=== PATIENT | female | born 1975 | race Caucasian/White ===

== ENCOUNTER 2021-12-12 18:15 | Emergency (ER) | payer OTHER, SELFPAY ==
[2021-12-12] VITALS (7 sets, daily range): BP systolic 116–130; BP diastolic 71–77; PULSE 63–73; RESP 16–21; O2SAT 99–100
--- NOTE | 2021-12-12 18:24 | ED_ITS ---
HPI - Abdominal Pain General Chief Complaint: Abdominal Pain Stated Complaint: ABD Pain Time Seen by Provider: 12/12/21 18:24 History of Present Illness HPI narrative: 46F nonsmoker without significant chronic medical history presents for evaluation of epigastric pain. She states that she is had multiple episodes in the past that seemed to improve without any significant duration or i ntervention, however today it lasted a bit longer and was more intense. She denies any obvious provocation or palliation but does state that she has occasion of radiation to her shoulder or back. She currently is symptom free. She denies dizziness, weakness or lightheadedness. She denies any nausea, vomiting or diarrhea and has had no fever or chills. She was talking with her mother who has had extensive gallbladder problems and was encouraged to come for evaluation. Related Data Previous Rx's Medication Instructions Recorded pantoprazole 40 mg tablet,delayed 40 mg PO DAILY #30 tabs 12/12/21 release (Protonix) Allergies Allergy/AdvReac Type Severity Reaction Status Date / Time Sulfa (Sulfonamide Allergy Verified 12/12/21 18:36 Antibiotics) Review of Systems Review of Systems Narrative: GENERAL: Denies chills, fatigue, malaise, fever, sweats. HEENT: Denies sinus pain, ear pain, sore throat, difficulty swallowing, dizziness. RESPIRATORY: Denies dyspnea, cough, wheezing, hemoptysis, sputum. CARDIOVASCULAR: Denies chest pain, palpitations, orthopnea, edema, GASTROINTESTINAL: See HPI : Denies dysuria, frequency, incontinence, hematuria, urinary retention. MUSCULOSKELETAL: denies weakness, joint pain, or bony pain SKIN: Denies rash, skin lesions, or other NEUROLOGIC: Denies weakness, headache, numbness, change in speech, confusion, seizures, incoordination. PSYCHIATRIC: No concerning psychosocial issues. 12 point review of systems is negative except for those stated above Exam Narrative Exam Narrative: GENERAL: [46] year old patient appears stated age. Well-developed patient, in mild distress. HEAD: Atraumatic. Normocephalic. EYES: Pupils equal round and reactive. Extraocular motions intact. No scleral icterus. No injection or drainage. ENT: Nose without bleeding, purulent drainage. Throat without erythema, tonsillar hypertrophy or exudate. Airway patent. NECK: Trachea midline. Non tender CARDIOVASCULAR: Regular rate and rhythm without murmurs, gallops, or rubs. RESPIRATORY: Clear to auscultation. Breath sounds equal bilaterally. No wheezes, rales, or rhonchi. GASTROINTESTINAL: Abdomen soft, non-tender, nondistended. EXTREMITIES: No edema or joint tenderness. BACK: Nontender without deformity or crepitance. No flank tenderness. NEURO: AOx3. SKIN: No rash or erythema of visible areas Initial Vital Signs Initial Vital Signs: Vital Signs Pulse Rate 73 12/12/21 18:25 Blood Pressure 130/77 12/12/21 18:25 Pulse Oximetry 100 12/12/21 18:25 Course Orders Ordered: ED Orders 12/12/21 18:35 Complete Blood Count AUTO DIFF Stat Comprehensive Metabolic Panel Stat Lipase Stat 12/12/21 18:47 US abdomen limited Stat Discontinued Medications Sodium Chloride (Normal Saline 0.9%) 1,000 mls @ 1,000 mls/hr IV BOLUS ONE Stop: 12/12/21 19:47 Last Infusion: 12/12/21 19:50 Dose: 0 mls/hr Documented By: Admin: 12/12/21 18:56 Dose: 1,000 mls/hr Documented By: SB Pantoprazole Sodium (Pantoprazole 40 Mg Vial) 40 mg IV NOW ONE Stop: 12/12/21 18:49 Last Admin: 12/12/21 18:56 Dose: 40 mg Documented By: SB Vital Signs Vital signs: Vital Signs - 8 hr 12/12/21 18:31 12/12/21 18:25 12/12/21 18:25 Pulse Rate 69 73 Respiratory Rate 16 Blood Pressure 116/71 130/77 Pulse Oximetry 100 100 Oxygen Delivery Method Room Air 12/12/21 18:30 12/12/21 18:30 12/12/21 19:00 Pulse Rate 67 67 Respiratory Rate 17 Blood Pressure 116/71 Pulse Oximetry 100 100 Oxygen Delivery Method Room Air 12/12/21 19:30 12/12/21 19:38 12/12/21 19:38 Pulse Rate 68 73 Respiratory Rate 21 18 Blood Pressure 121/74 Pulse Oximetry 100 99 Oxygen Delivery Method 12/12/21 20:00 Pulse Rate 63 Respiratory Rate 16 Blood Pressure Pulse Oximetry 99 Oxygen Delivery Method Room Air MDM - Abdominal Pain Lab Data Result diagrams: 12/12/21 18:35 12/12/21 18:35 Labs: Lab Results 12/12/21 12/12/21 Range/Units 18:35 18:35 WBC 8.5 (4.5-11.0) X10^3/uL RBC 4.77 (4.0-5.2) X10^6/uL Hgb 13.8 (12.0-16.0) g/dL Hct 40.7 (36-46) % MCV 85.2 (80-100) fL MCH 29.0 (26-34) PG MCHC 34.0 (30-36) % RDW 13.3 (11.6-14.8) % Plt Count 223 (150-400) X10^3/uL Neut % (Auto) 65.3 (50-75) % Lymph % (Auto) 27.3 (25-40) % [place] % (Auto) 6.1 (3-14) % Eos % (Auto) 0.8 L (2-4) % Baso % (Auto) 0.5 (0-2) % Neut # (Auto) 5500 (1039-8217) /uL Lymph # (Auto) 2300 (9318-5785) /uL [place] # (Auto) 500 (0-900) /uL Eos # (Auto) 100 (0-450) /uL Baso # (Auto) 0 (0-100) /uL Sodium 140 (137-145) mmol/L Potassium 3.5 (3.4-5.1) mmol/L Chloride 105 (98-107) mmol/L Carbon Dioxide 27 (22-32) mmol/L BUN 12 (7-17) mg/dL Creatinine 0.75 (0.52-1.04) mg/dL Estimated GFR > 60 (>60) mL/min BUN/Creatinine Ratio 16.0 (6-22) Glucose 99 (70-100) mg/dL Calcium 9.5 (8.4-10.2) mg/dL Total Bilirubin 0.5 (0.2-1.3) mg/dL AST 23 (14-36) IU/L ALT 16 (<35) IU/L Alkaline Phosphatase 39 (38-126) U/L Total Protein 8.0 (6.3-8.2) g/dL Albumin 4.5 (3.5-5.0) g/dL Globulin 3.5 (1.7-4.1) g/dL Albumin/Globulin Ratio 1.3 (1.0-2.8) Lipase 112 (23-300) U/L Imaging Data US - abdomen: Radiologist's Impression: Close Abdomen Ultrasound (Signed) Timmy Laboy - 12/12/21 Launch?[address] [address] Ultrasound Report Signed Patient: Inez Rico MR#: [id number] : 1975 Acct:[id number] Age/Sex: 46 / F Date of Service: 12/12/21 Loc: ED Accession Number: [id number] ?? Procedure: US abdomen limited Ordering Provider: Arash Ferrera D.O. PROCEDURE:? US ABDOMEN LIMITED ? INDICATIONS:? epigastric pain ? TECHNIQUE:? Real-time scanning was performed of the abdominal and retroperitoneal organs, with image documentation.? ? COMPARISON:? None. ? FINDINGS:? ? Liver:? Liver is normal in size and homogeneous in echotexture.? ? Gallbladder:? The gallbladder demonstrates no gallbladder wall thickening.? No gallstones are seen.? No pericholecystic fluid.? However, there is a positive sonographic Martinez sign is elicited by the hot die press operator.? ? Biliary ducts:? Intrahepatic bile ducts are non-dilated.? Extrahepatic bile duct caliber measures 4 mm.? Normal is 6-7 mm or less in diameter, or 10 mm or less post-cholecystectomy.? ? Pancreas:? Visualized portions of the pancreas are sonographically normal.? ? Miscellaneous:? No free abdominal fluid.? ? ? IMPRESSION:? There is an abnormal sonographic Martinez's sign elicited by the hot die press operator during image acquisition.? Findings may be seen with acute cholecystitis.? Otherwise, no other sonographic findings to suggest acute cholecystitis or cholelithiasis. ? ? ? Dictated by: Timmy Laboy M.D. on 12/12/2021 at 19:27 ? ? Approved by: Timmy Laboy M.D. on 12/12/2021 at 19:29 ? MDM Narrative Medical decision making narrative: Multiple etiologies for patient's symptoms considered include, but not limited to: [Gallbladder disease versus pancreatitis versus GERD versus esophageal spasm versus other Patient's symptoms improved over duration of stay with above-stated therapies. History, physical exam, labs, imaging, and response to therapies have been reassuring. Findings and discharge diagnosis discussed with patient/family followed by verbalization of understanding Return precautions discussed with patient/family whom verbalize understanding. Pain has been well controlled and patient is tolerating oral hydration. Discharge Plan Departure Patient Disposition: Home Clinical Impression: Acute epigastric pain Instructions: DI for Epigastric Pain Activity Restrictions/Additional Instructions: *You have been diagnosed with [acute epigastric pain, as we discussed thankfully your labs and ultrasound are very reassuring and there is no evidence of gallbladder disease, pancreatitis or other specific diagnosis which would require immediate or specific intervention] *What to do: *Please continue to take your regular medications as directed. [x ] New medication prescriptions sent to your pharmacy: [ [facility] in [place]] [ ] New medication written as a paper prescription [ ] No new medications given *Please follow up with your primary care provider in 2-3 days, call for an appointment. Let them know you were seen in the Emergency Department and that we ask that you be seen in follow up. We will electronically transmit a record of today's note if your PCP is in our system *Please consider a clear liquid diet for the next 24-48 hours and then slowly advance to regular as tolerated. Also, try to avoid alcohol, nicotine, caffeine, spicy, acidic or fatty foods as this may worsen your symptoms *If you do not have a primary care provider please contact the [facility] Resource line at [phone]. They will ask some questions about your medical history and help get you set up with a doctor in the community. *Return to Emergency Department if you should have any new, worsening or concern ing symptoms, such as [fever greater than 101 F, shaking chills, worsening pain, persistent vomiting or other bothersome symptoms] Prescriptions: New pantoprazole [Protonix] 40 mg tablet,delayed release (DR/EC) 40 mg PO DAILY Qty: 30 0RF Referrals: Danis Schaefer MD [Primary Care Provider] - Visit Report Forms: Patient Portal/API
--- NOTE | 2021-12-12 18:47 | DI.US.S_ITS ---
PROCEDURE: US ABDOMEN LIMITED INDICATIONS: epigastric pain TECHNIQUE: Real-time scanning was performed of the abdominal and retroperitoneal organs, with image documentation. COMPARISON: None. FINDINGS: Liver: Liver is normal in size and homogeneous in echotexture. Gallbladder: The gallbladder demonstrates no gallbladder wall thickening. No gallstones are seen. No pericholecystic fluid. However, there is a positive sonographic Martinez sign is elicited by the pierogi maker. Biliary ducts: Intrahepatic bile ducts are non-dilated. Extrahepatic bile duct caliber measures 4 mm. Normal is 6-7 mm or less in diameter, or 10 mm or less post-cholecystectomy. Pancreas: Visualized portions of the pancreas are sonographically normal. Miscellaneous: No free abdominal fluid. IMPRESSION: There is an abnormal sonographic Martinez's sign elicited by the pierogi maker during image acquisition. Findings may be seen with acute cholecystitis. Otherwise, no other sonographic findings to suggest acute cholecystitis or cholelithiasis. Dictated by: Timmy Laboy M.D. on 12/12/2021 at 19:27 Approved by: Timmy Laboy M.D. on 12/12/2021 at 19:29
[2021-12-12 18:48] LABS: Add Manual Diff / Slide Review NO; Basophils Absolute Auto 0 /uL (0-100); Basophils Percent Auto 0.5 % (0-2); Eosinophils Absolute Auto 100 /uL (0-450); Eosinophils Percent Auto 0.8 % (2-4); Hematocrit 40.7 % (36-46); Hemoglobin 13.8 g/dL (12.0-16.0); Lymphocytes Absolute Auto 2300 /uL (1100-4500); Lymphocytes Percent Auto 27.3 % (25-40); Mean Corpuscular Volume 85.2 fL (80-100); Monocytes Absolute Auto 500 /uL (0-900); Monocytes Percent Auto 6.1 % (3-14); Neutrophils Absolute Auto 5500 /uL (1500-7000); Neutrophils Percent Auto 65.3 % (50-75); Platelet Count 223 X10^3/uL (150-400); Red Blood Cell Count 4.77 X10^6/uL (4.0-5.2); Red Cell Distribution Width 13.3 % (11.6-14.8); White Blood Cell Count 8.5 X10^3/uL (4.5-11.0)
[2021-12-12] MEDS: PANTOPRAZOLE 40 MG VIAL IV (18:56)
[2021-12-12] MEDS: SODIUM CHLORIDE 0.9% 1,000 ML 1000 ML IV (18:56)
[2021-12-12 19:01] LABS: Alanine Aminotransferase 16 IU/L (<35); Albumin 4.5 g/dL (3.5-5.0); Albumin Globulin Ratio 1.3 (1.0-2.8); Alkaline Phosphatase 39 U/L (38-126); Aspartate Aminotransferase 23 IU/L (14-36); Bilirubin Total 0.5 mg/dL (0.2-1.3); Blood Urea Nitrogen 12 mg/dL (7-17); Calcium 9.5 mg/dL (8.4-10.2); Carbon Dioxide 27 mmol/L (22-32); Chloride 105 mmol/L (98-107); Estimated Glomerular Filt Rate > 60 mL/min (>60); Globulin 3.5 g/dL (1.7-4.1); Glucose 99 mg/dL (70-100); HEMOLYSIS < 15 (0-50); Lipase 112 U/L (23-300); Potassium 3.5 mmol/L (3.4-5.1); Sodium 140 mmol/L (137-145)
== END 2021-12-12 20:44 | disposition home or self-care (01) ==
PROVIDERS: Emergency Provider Emergency Medicine; PCP Internal Medicine
DX: R10.13 Epigastric pain (principal)
CPT/HCPCS: 36415; 76705; 80053; 83690; 85025; 96361; 96374; 99284; C9113

== ENCOUNTER 2022-10-21 14:33 | Emergency (ER) | payer OTHER, SELFPAY ==
--- NOTE | 2022-10-21 14:39 | ED.GENADULT ---
HPI - General Adult General Chief complaint: Abdominal Pain Stated complaint: Stomach pain Time Seen by Provider: 10/21/22 14:39 Related Data Previous Rx's Medication Instructions Recorded pantoprazole 40 mg tablet,delayed 40 mg PO DAILY #30 tabs 12/12/21 release (Protonix) Allergies Allergy/AdvReac Type Severity Reaction Status Date / Time Sulfa (Sulfonamide Allergy Verified 10/21/22 14:45 Antibiotics) Patient History Social History Smoking Status: Never smoker Discharge Plan Departure Prescriptions: No Action pantoprazole [Protonix] 40 mg tablet,delayed release (DR/EC) 40 mg PO DAILY Qty: 30 0RF Referrals: Danis Schaefer MD [Primary Care Provider] -
--- NOTE | 2022-10-21 14:40 | DI.US.S_ITS ---
PROCEDURE: US ABDOMEN LIMITED INDICATIONS: EPIGASTRIC PAIN TECHNIQUE: Real-time focused scanning was performed of the abdomen, with image documentation. COMPARISON: None. FINDINGS: Liver measures 14.0 centimeters in long axis. Liver has normal echotexture. Gallbladder slightly contracted. No gallstones. Gallbladder wall measures 1.8 millimeters. No pericholecystic fluid. No sonographic Martinez sign. Biliary tree is nondilated. Common bile duct measures 2.0 millimeters. Pancreas is sonographically normal. IMPRESSION: No sonographic evidence of cholelithiasis or cholecystitis. If there is continued clinical concern for cholecystitis, a nuclear medicine HIDA scan should be considered for further evaluation. Dictated by: Rosanna Mota MD, PhD on 10/21/2022 at 15:37 Approved by: Rosanna Mota MD, PhD on 10/21/2022 at 15:37
[2022-10-21 14:41] VITALS: BP 120/59; PULSE 79; RESP 18; TEMP 37.1; O2SAT 95; BMI 19.3
--- NOTE | 2022-10-21 14:54 | ED_ITS ---
HPI - Abdominal Pain <Carmen Hodges PA-C - Last Filed: 10/21/22 16:55> General Chief Complaint: Abdominal Pain Stated Complaint: Stomach pain Time Seen by Provider: 10/21/22 14:39 Source: patient Mode of arrival: Ambulatory History of Present Illness HPI narrative: Patient is a 47-year-old female presenting for evaluation of epigastric pain x6 days. She reports that 3 days ago she developed nausea and vomited her food. She states that she took Zofran which caused her to feel constipated. She says that it helped her nausea feel little bit better. She denies any vomiting since Tuesday. She states that her last menstrual period was September 24 and she is expecting it to come soon. She reports that over the 19 of October she had 3 shots of alcohol and thinks this may be related to the current pain that she is having. She was seen in November for similar pain. She reports that she occasionally does get pain similar to this and notes that it comes and self resolves. She is careful to avoid triggers such as caffeine and alcohol as well as generally treating with Prilosec which generally helps control this. She reports that it feels a little bit better when she lies on her left side. She reports her symptoms are somewhat improved right now. She reports that she has a follow up scheduled with [employer] and is following this on/off pain with her PCP as well. Related Data Previous Rx's Medication Instructions Recorded pantoprazole 40 mg tablet,delayed 40 mg PO DAILY #30 tabs 12/12/21 release (Protonix) Allergies Allergy/AdvReac Type Severity Reaction Status Date / Time Sulfa (Sulfonamide Allergy Verified 10/21/22 14:45 Antibiotics) Review of Systems <Carmen Hodges PA-C - Last Filed: 10/21/22 16:55> Review of Systems Narrative: per HPI Patient History <Carmen Hodges PA-C - Last Filed: 10/21/22 16:55> Social History Smoking Status: Never smoker Smoking Status: Never smoker alcohol intake frequency: 0-2 drinks per day Substance Use Type: does not use Exam <Carmen Hodges PA-C - Last Filed: 10/21/22 16:55> Initial Vital Signs Initial Vital Signs: Vital Signs Temperature 98.7 F 10/21/22 14:41 Pulse Rate 79 10/21/22 14:41 Respiratory Rate 18 10/21/22 14:41 Blood Pressure 120/59 L 10/21/22 14:41 Pulse Oximetry 95 10/21/22 14:41 Oxygen Delivery Method Room Air 10/21/22 14:41 GENERAL: 47 year old patient appears stated age. Well-developed patient, in no acute distress. HEAD: Atraumatic. Normocephalic. EYES: Pupils equal round CARDIOVASCULAR: Regular rate and rhythm without murmurs, gallops, or rubs. RESPIRATORY: Clear to auscultation. Breath sounds equal bilaterally. No wheezes, rales, or rhonchi. GASTROINTESTINAL: Abdomen soft, nondistended, mild tenderness in epigastric area, negative Martinez's sign, negative McBurney's, no hepatosplenomegaly palpated, no CVA tenderness EXTREMITIES: No edema or joint tenderness. BACK: Nontender without deformity or crepitance. No flank tenderness. NEURO: AOx3. SKIN: No rash or erythema of visible areas <Arash Ferrera DO - Last Filed: 10/22/22 07:01> Initial Vital Signs Initial Vital Signs: Vital Signs Temperature 98.7 F 10/21/22 14:41 Pulse Rate 79 10/21/22 14:41 Respiratory Rate 18 10/21/22 14:41 Blood Pressure 120/59 L 10/21/22 14:41 Pulse Oximetry 95 10/21/22 14:41 Oxygen Delivery Method Room Air 10/21/22 14:41 Course <Carmen Hodges PA-C - Last Filed: 10/21/22 16:55> Orders Ordered: Discontinued Medications Sodium Chloride (Normal Saline 0.9%) 1,000 mls @ 1,000 mls/hr IV BOLUS ONE Stop: 10/21/22 15:38 Last Infusion: 10/21/22 16:37 Dose: 0 mls/hr Documented By: Admin: 10/21/22 14:56 Dose: 1,000 mls/hr Documented By: Pantoprazole Sodium (Pantoprazole 40 Mg Vial) 40 mg IV NOW ONE Stop: 10/21/22 14:40 Last Admin: 10/21/22 14:56 Dose: 40 mg Documented By: ST Vital Signs Vital signs: Vital Signs - 8 hr 10/21/22 14:41 10/21/22 15:01 10/21/22 15:01 Temperature 98.7 F Pulse Rate 79 67 Respiratory Rate 18 Blood Pressure 120/59 L 105/67 Pulse Oximetry 95 98 Oxygen Delivery Method Room Air <Arash Ferrera DO - Last Filed: 10/22/22 07:01> Orders Ordered: Discontinued Medications Sodium Chloride (Normal Saline 0.9%) 1,000 mls @ 1,000 mls/hr IV BOLUS ONE Stop: 10/21/22 15:38 Last Infusion: 10/21/22 16:37 Dose: 0 mls/hr Documented By: Admin: 10/21/22 14:56 Dose: 1,000 mls/hr Documented By: ST Pantoprazole Sodium (Pantoprazole 40 Mg Vial) 40 mg IV NOW ONE Stop: 10/21/22 14:40 Last Admin: 10/21/22 14:56 Dose: 40 mg Documented By: ST Vital Signs Vital signs: Vital Signs - 8 hr 10/21/22 14:41 10/21/22 15:01 10/21/22 15:01 Temperature 98.7 F Pulse Rate 79 67 Respiratory Rate 18 Blood Pressure 120/59 L 105/67 Pulse Oximetry 95 98 Oxygen Delivery Method Room Air MDM - Abdominal Pain <Carmen Hodges PA-C - Last Filed: 10/21/22 16:55> Lab Data 10/21/22 15:00 10/21/22 15:00 Labs: Lab Results 10/21/22 10/21/22 10/21/22 Range/Units 15:00 15:00 16:03 WBC 6.0 (4.5-11.0) X10^3/uL RBC 4.68 (4.0-5.2) X10^6/uL Hgb 13.6 (12.0-16.0) g/dL Hct 40.3 (36-46) % MCV 86.0 (80-100) fL MCH 29.0 (26-34) PG MCHC 33.8 (30-36) % RDW 13.1 (11.6-14.8) % Plt Count 213 (150-400) X10^3/uL Neut % (Auto) 61.7 (50-75) % Lymph % (Auto) 28.9 (25-40) % [place] % (Auto) 7.8 (3-14) % Eos % (Auto) 1.1 L (2-4) % Baso % (Auto) 0.5 (0-2) % Neut # (Auto) 3700 (5393-8442) /uL Lymph # (Auto) 1700 (2413-8618) /uL [place] # (Auto) 500 (0-900) /uL Eos # (Auto) 100 (0-450) /uL Baso # (Auto) 0 (0-100) /uL Sodium 138 (137-145) mmol/L Potassium 3.7 (3.4-5.1) mmol/L Chloride 102 (98-107) mmol/L Carbon Dioxide 28 (22-32) mmol/L BUN 12 (7-17) mg/dL Creatinine 0.71 (0.52-1.04) mg/dL Estimated GFR > 60 (>60) mL/min BUN/Creatinine Ratio 16.9 (6-22) Glucose 80 (70-100) mg/dL Calcium 9.0 (8.4-10.2) mg/dL Total Bilirubin 0.6 (0.2-1.3) mg/dL AST 30 (14-36) IU/L ALT 28 (<35) IU/L Alkaline Phosphatase 37 L (38-126) U/L Total Protein 7.6 (6.3-8.2) g/dL Albumin 4.3 (3.5-5.0) g/dL Globulin 3.3 (1.7-4.1) g/dL Albumin/Globulin Ratio 1.3 (1.0-2.8) Lipase 65 (23-300) U/L Urine Color Urine Appearance Urine pH (4.5-8.0) Ur Specific [place] (1.000-1.035) Urine Protein (Negative) Urine Glucose (UA) (Negative) g/dL Urine Ketones (NEGATIVE) Urine Occult Blood (Negative) Urine Nitrate (Negative) Urine Bilirubin (NEGATIVE) Urine Urobilinogen (0.2) E.U./dL Ur Leukocyte Esterase (NEGATIVE) Urine RBC (0-5/HPF) Urine WBC (0-5/HPF) Ur Squamous Epith Cells (0-5/HPF) Urine Bacteria (None) Ur Culture Indicated? Urine Test Negative (Negative) 10/21/22 Range/Units 16:03 WBC (4.5-11.0) X10^3/uL RBC (4.0-5.2) X10^6/uL Hgb (12.0-16.0) g/dL Hct (36-46) % MCV (80-100) fL MCH (26-34) PG MCHC (30-36) % RDW (11.6-14.8) % Plt Count (150-400) X10^3/uL Neut % (Auto) (50-75) % Lymph % (Auto) (25-40) % [place] % (Auto) (3-14) % Eos % (Auto) (2-4) % Baso % (Auto) (0-2) % Neut # (Auto) (5673-7759) /uL Lymph # (Auto) (9416-5159) /uL [place] # (Auto) (0-900) /uL Eos # (Auto) (0-450) /uL Baso # (Auto) (0-100) /uL Sodium (137-145) mmol/L Potassium (3.4-5.1) mmol/L Chloride (98-107) mmol/L Carbon Dioxide (22-32) mmol/L BUN (7-17) mg/dL Creatinine (0.52-1.04) mg/dL Estimated GFR (>60) mL/min BUN/Creatinine Ratio (6-22) Glucose (70-100) mg/dL Calcium (8.4-10.2) mg/dL Total Bilirubin (0.2-1.3) mg/dL AST (14-36) IU/L ALT (<35) IU/L Alkaline Phosphatase (38-126) U/L Total Protein (6.3-8.2) g/dL Albumin (3.5-5.0) g/dL Globulin (1.7-4.1) g/dL Albumin/Globulin Ratio (1.0-2.8) Lipase (23-300) U/L Urine Color Yellow Urine Appearance Clear Urine pH 7.5 (4.5-8.0) Ur Specific [place] <=1.005 (1.000-1.035) Urine Protein Negative (Negative) Urine Glucose (UA) Negative (Negative) g/dL Urine Ketones Negative (NEGATIVE) Urine Occult Blood Negative (Negative) Urine Nitrate Negative (Negative) Urine Bilirubin Negative (NEGATIVE) Urine Urobilinogen 0.2 (0.2) E.U./dL Ur Leukocyte Esterase Negative (NEGATIVE) Urine RBC None seen (0-5/HPF) Urine WBC None seen (0-5/HPF) Ur Squamous Epith Cells None seen (0-5/HPF) Urine Bacteria None seen (None) Ur Culture Indicated? Cult not indicated Urine Test (Negative) Point of care testing: Point of Care Testing Test Results Negative Imaging Data abdominal US: Radiologist's Impression: PROCEDURE: US ABDOMEN LIMITED ? INDICATIONS:? EPIGASTRIC PAIN ? TECHNIQUE:? Real-time focused scanning was performed of the abdomen, with image documentation.? ? COMPARISON:? None. ? FINDINGS:? ? Liver measures 14.0 centimeters in long axis.? Liver has normal echotexture. ? Gallbladder slightly contracted.? No gallstones.? Gallbladder wall measures 1.8 millimeters.? No pericholecystic fluid.? No sonographic Martinez sign. ? Biliary tree is nondilated.? Common bile duct measures 2.0 millimeters. ? Pancreas is sonographically normal. ? IMPRESSION:? No sonographic evidence of cholelithiasis or cholecystitis. If there is continued clinical concern for cholecystitis, a nuclear medicine HIDA scan should be considered for further evaluation. ? ? ? Dictated by: Rosanna Mota MD, PhD on 10/21/2022 at 15:37 ? ? Approved by: Rosanna Mota MD, PhD on 10/21/2022 at 15:37 ? MDM Narrative Medical decision making narrative: CC: This is a new problem, uncertain diagnosis possible systemic effects Complicating co-morbidities: Chronic on/off epigastric pain Data collected from: patient, Medical records reviewed: December 07, 2021 ER visit Differential considered: Pancreatitis, reflux, gastritis, urine, Exam documented above, pertinent findings include: Some tenderness to palpation over epigastric area. Lab Test results independently reviewed as above. Pertinent findings: CBC, CMP and lipase show no abnormal values, UA shows no abnormalities and test is negative Imaging studies independently reviewed: Abdominal ultrasound does not show any evidence of cholelithiasis or cholecystitis. Treatments: Patient received pantoprazole and reports significant improvement pantoprazole and fluids. Re-evaluations: Recheck at 4:17 p.m. shows that patient has significantly improved, and she rep orts her pain is better. Discussion: Reviewed with Dr. Ferrera. Discussed with patient that she should be good to go home today. She likely is experiencing gastritis and I advised her to avoid NSAIDs and known triggers such as caffeine and continue daily omeprazole. I advised that she continue follow up with primary care provider and [employer] as scheduled. Disposition: see below, along with detailed discharge instructions that have been reviewed with patient as well as indications for ED re-evaluation and additional outpatient follow up <Arash Ferrera, DO - Last Filed: 10/22/22 07:01> Lab Data Labs: Lab Results 10/21/22 10/21/22 10/21/22 Range/Units 15:00 15:00 16:03 WBC 6.0 (4.5-11.0) X10^3/uL RBC 4.68 (4.0-5.2) X10^6/uL Hgb 13.6 (12.0-16.0) g/dL Hct 40.3 (36-46) % MCV 86.0 (80-100) fL MCH 29.0 (26-34) PG MCHC 33.8 (30-36) % RDW 13.1 (11.6-14.8) % Plt Count 213 (150-400) X10^3/uL Neut % (Auto) 61.7 (50-75) % Lymph % (Auto) 28.9 (25-40) % [place] % (Auto) 7.8 (3-14) % Eos % (Auto) 1.1 L (2-4) % Baso % (Auto) 0.5 (0-2) % Neut # (Auto) 3700 (8563-5844) /uL Lymph # (Auto) 1700 (1401-2250) /uL [place] # (Auto) 500 (0-900) /uL Eos # (Auto) 100 (0-450) /uL Baso # (Auto) 0 (0-100) /uL Sodium 138 (137-145) mmol/L Potassium 3.7 (3.4-5.1) mmol/L Chloride 102 (98-107) mmol/L Carbon Dioxide 28 (22-32) mmol/L BUN 12 (7-17) mg/dL Creatinine 0.71 (0.52-1.04) mg/dL Estimated GFR > 60 (>60) mL/min BUN/Creatinine Ratio 16.9 (6-22) Glucose 80 (70-100) mg/dL Calcium 9.0 (8.4-10.2) mg/dL Total Bilirubin 0.6 (0.2-1.3) mg/dL AST 30 (14-36) IU/L ALT 28 (<35) IU/L Alkaline Phosphatase 37 L (38-126) U/L Total Protein 7.6 (6.3-8.2) g/dL Albumin 4.3 (3.5-5.0) g/dL Globulin 3.3 (1.7-4.1) g/dL Albumin/Globulin Ratio 1.3 (1.0-2.8) Lipase 65 (23-300) U/L Urine Color Urine Appearance Urine pH (4.5-8.0) Ur Specific [place] (1.000-1.035) Urine Protein (Negative) Urine Glucose (UA) (Negative) g/dL Urine Ketones (NEGATIVE) Urine Occult Blood (Negative) Urine Nitrate (Negative) Urine Bilirubin (NEGATIVE) Urine Urobilinogen (0.2) E.U./dL Ur Leukocyte Esterase (NEGATIVE) Urine RBC (0-5/HPF) Urine WBC (0-5/HPF) Ur Squamous Epith Cells (0-5/HPF) Urine Bacteria (None) Ur Culture Indicated? Urine Test Negative (Negative) 10/21/22 Range/Units 16:03 WBC (4.5-11.0) X10^3/uL RBC (4.0-5.2) X10^6/uL Hgb (12.0-16.0) g/dL Hct (36-46) % MCV (80-100) fL MCH (26-34) PG MCHC (30-36) % RDW (11.6-14.8) % Plt Count (150-400) X10^3/uL Neut % (Auto) (50-75) % Lymph % (Auto) (25-40) % [place] % (Auto) (3-14) % Eos % (Auto) (2-4) % Baso % (Auto) (0-2) % Neut # (Auto) (6847-0510) /uL Lymph # (Auto) (8103-5415) /uL [place] # (Auto) (0-900) /uL Eos # (Auto) (0-450) /uL Baso # (Auto) (0-100) /uL Sodium (137-145) mmol/L Potassium (3.4-5.1) mmol/L Chloride (98-107) mmol/L Carbon Dioxide (22-32) mmol/L BUN (7-17) mg/dL Creatinine (0.52-1.04) mg/dL Estimated GFR (>60) mL/min BUN/Creatinine Ratio (6-22) Glucose (70-100) mg/dL Calcium (8.4-10.2) mg/dL Total Bilirubin (0.2-1.3) mg/dL AST (14-36) IU/L ALT (<35) IU/L Alkaline Phosphatase (38-126) U/L Total Protein (6.3-8.2) g/dL Albumin (3.5-5.0) g/dL Globulin (1.7-4.1) g/dL Albumin/Globulin Ratio (1.0-2.8) Lipase (23-300) U/L Urine Color Yellow Urine Appearance Clear Urine pH 7.5 (4.5-8.0) Ur Specific [place] <=1.005 (1.000-1.035) Urine Protein Negative (Negative) Urine Glucose (UA) Negative (Negative) g/dL Urine Ketones Negative (NEGATIVE) Urine Occult Blood Negative (Negative) Urine Nitrate Negative (Negative) Urine Bilirubin Negative (NEGATIVE) Urine Urobilinogen 0.2 (0.2) E.U./dL Ur Leukocyte Esterase Negative (NEGATIVE) Urine RBC None seen (0-5/HPF) Urine WBC None seen (0-5/HPF) Ur Squamous Epith Cells None seen (0-5/HPF) Urine Bacteria None seen (None) Ur Culture Indicated? Cult not indicated Urine Test (Negative) Point of care testing: Point of Care Testing Test Results Negative Discharge Plan Departure Patient Disposition: Home Clinical Impression: Gastritis Instructions: DI for Dyspepsia Activity Restrictions/Additional Instructions: Labs and imaging did not show signs of pancreatitis, no gallbladder infection or stones. I recommend that you continue follow up for evaluation of your on/off epigastric pain with her primary care provider and [employer] as d clayed. Please stay well hydrated and avoid any known triggers such as NSAIDs, caffeine and alcohol. Also avoid lying down for 30 minutes after eating. Please return to the ER if you develop increased abdominal pain, nausea, vomiting or other concerning symptoms. Prescriptions: No Action pantoprazole [Protonix] 40 mg tablet,delayed release (DR/EC) 40 mg PO DAILY Qty: 30 0RF Referrals: Danis Schaefer MD [Primary Care Provider] - Stand Alone Forms: Patient Portal/API <Arash Ferrera DO - Last Filed: 10/22/22 07:01> Cosign ED Attending Cosignature Attestation: I was immediately available in the department for consultation. This documentation has been reviewed and I agree with assessment and plan. Supervised by Arash Ferrera DO
[2022-10-21] MEDS: SODIUM CHLORIDE 0.9% 1,000 ML 1000 ML IV (14:56)
[2022-10-21] MEDS: PANTOPRAZOLE 40 MG VIAL IV (14:56)
[2022-10-21 15:01] VITALS: BP 105/67; PULSE 67; O2SAT 98
[2022-10-21 15:14] LABS: Add Manual Diff / Slide Review NO; Basophils Absolute Auto 0 /uL (0-100); Basophils Percent Auto 0.5 % (0-2); Eosinophils Absolute Auto 100 /uL (0-450); Eosinophils Percent Auto 1.1 % (2-4); Hematocrit 40.3 % (36-46); Hemoglobin 13.6 g/dL (12.0-16.0); Lymphocytes Absolute Auto 1700 /uL (1100-4500); Lymphocytes Percent Auto 28.9 % (25-40); Mean Corpuscular HGB Conc 33.8 % (30-36); Monocytes Absolute Auto 500 /uL (0-900); Monocytes Percent Auto 7.8 % (3-14); Neutrophils Absolute Auto 3700 /uL (1500-7000); Neutrophils Percent Auto 61.7 % (50-75); Platelet Count 213 X10^3/uL (150-400); Red Blood Cell Count 4.68 X10^6/uL (4.0-5.2); Red Cell Distribution Width 13.1 % (11.6-14.8)
[2022-10-21 15:30] VITALS: PULSE 77; O2SAT 100
[2022-10-21 15:37] LABS: Alanine Aminotransferase 28 IU/L (<35); Albumin 4.3 g/dL (3.5-5.0); Albumin Globulin Ratio 1.3 (1.0-2.8); Alkaline Phosphatase 37 U/L (38-126); Aspartate Aminotransferase 30 IU/L (14-36); BUN Creatinine Ratio 16.9 (6-22); Bilirubin Total 0.6 mg/dL (0.2-1.3); Blood Urea Nitrogen 12 mg/dL (7-17); Carbon Dioxide 28 mmol/L (22-32); Chloride 102 mmol/L (98-107); Estimated Glomerular Filt Rate > 60 mL/min (>60); Globulin 3.3 g/dL (1.7-4.1); Glucose 80 mg/dL (70-100); HEMOLYSIS < 15 (0-50); Lipase 65 U/L (23-300); Potassium 3.7 mmol/L (3.4-5.1); Sodium 138 mmol/L (137-145); Total Protein 7.6 g/dL (6.3-8.2)
[2022-10-21 16:02] VITALS: PULSE 71; O2SAT 100
[2022-10-21 16:15] LABS: Appearance Urine UA CLEAR; Bilirubin Urine UA NEGATIVE (NEGATIVE); Color Urine UA YELLOW; Glucose Urine UA NEGATIVE (Negative); Ketones Urine UA NEGATIVE (NEGATIVE); Leukocyte Esterase Urine UA NEGATIVE (NEGATIVE); Nitrite Urine UA NEGATIVE (Negative); Occult Blood Urine UA NEGATIVE (Negative); Protein Urine UA NEGATIVE (Negative); Specific Gravity Urine UA <=1.005 (1.000-1.035); Urobilinogen Urine UA 0.2 E.U./dL (0.2)
[2022-10-21 16:19] LABS: Pregnancy Test Urine Negative (Negative)
[2022-10-21 16:30] VITALS: PULSE 69; O2SAT 99
[2022-10-21 16:32] VITALS: BP 102/68; PULSE 67; O2SAT 99
[2022-10-21 16:40] LABS: Bacteria Urine None Seen; Culture Indicated Urine Cult Not Indicated; RBC Urine None Seen (0-5/HPF); Squamous Epithelial Cell Urine None Seen (0-5/HPF); WBC Urine None Seen (0-5/HPF); pH Urine UA 7.5 (4.5-8.0)
== END 2022-10-21 16:36 | disposition home or self-care (01) ==
PROVIDERS: Emergency Medicine; Emergency Provider Physician Assistant; PCP Internal Medicine
DX: K29.70 Gastritis, unspecified, without bleeding (principal)
CPT/HCPCS: 36415; 76705; 80053; 81001; 81025; 83690; 85025; 96374; 99284; C9113

== ENCOUNTER 2022-12-09 08:43 | Day surgery (SDC) | payer OTHER, SELFPAY ==
[2022-11-29 07:30] VITALS: BMI 19.3
[2022-12-09] VITALS (12 sets, daily range): BP systolic 90–115; BP diastolic 54–69; PULSE 65–115; RESP 12–20; TEMP 36.6–37.1; O2SAT 98–100; BMI 19.3
[2022-12-09] MEDS: LACTATED RINGERS 1,000 ML 42 ML IV (09:15)
--- NOTE | 2022-12-09 09:51 | PM.PREOP ---
Pre-operative Note COVID-19 Criteria for continued procedure: Non-surgical alternatives not available or appropriate per current SOC Interval Note History & Physical reviewed/Exam performed by Physician: Yes Changes to H&P: No H&P completed within 30 days and has changed as indicated here:: 11/19/22
[2022-12-09] MEDS: CEFAZOLIN 2 GM/100 ML PREMIX 100 ML IV (10:08)
--- NOTE | 2022-12-09 10:29 | SUR.OPER ---
Lithotomy on padded OR bed, head on pillow, arms secured on padded arm boards at <90 degrees abduction. Legs secured in padded yellow fins stirrups.
[2022-12-09] MEDS: BUPIVACAINE 0.25% (PF) 30 ML, EPINEPHrine 0.15 MG INJ (10:38)
--- NOTE | 2022-12-09 13:06 | P.OP_ITS ---
Operative Date/Time/Diagnoses Date of procedure: 12/09/22 Time of procedure: 13:06 Pre-op diagnosis: Third-degree cystocele Third-degree rectocele Increased urethrovesical angle Labial hypertrophy Post-op diagnosis: same Procedure & Clinicians Procedure: Procedures Operation Date: 12/09/22 09:45 Actual Procedure Side Surgeon p Anterior/Posterior repair, Katty Martinez MD s TVT w. cysto, labiaplasty, perineorrhaphy Katty Martinez MD Indications: Symptomatic cystocele and rectocele Stress urinary incontinence with increased urethrovesical angle Labial hypertrophy Surgeon: Katty Martinez Compliance Aide: Gay Sinclair Anesthesia Type: General and Local Operative Notes Findings: Third-degree cystocele Third-degree rectocele Labial hypertrophy Increased urethrovesical angle Closure Type: primary Specimen(s): none Applied: catheter and other (Vaginal packing) Estimated blood loss (mL): 250 Blood products transfused: none Procedure in detail: The patient was taken to the operating room where she was placed in the dorsal supine position. After adequate general endotracheal anesthesia was achieved, she was placed in the dorsal lithotomy position, and prepped and draped in the usual sterile fashion. A timeout was performed. Two Allis clamps were placed at the apex of the cystocele. 6 mL of half percent Marcaine with epinephrine were injected and an incision was made with a #10 blade between the 2 Allis clamps. Wide Allis clamps were placed on the midline of the cystocele approximately 5. 6 cc 0.5% Marcaine with epinephrine were injected submucosally on either side of the midline. The mucosa was undermined using the Metzenbaum scissors and the mucosa incised in the midline moving the wide Allis clamps to the edges of the mucosa. The mucosa was dissected off the underlying fascia using an open moistened Ray-Sanjay and a #10 blade. The fascia was reapproximated with 0 Vicryl with a series of horizontal mattress sutures. The excess vaginal mucosa was excised. The mucosa was closed using simple interrupted sutures with 2-0 Vicryl including the underlying fascia to close the space. The weighted speculum was removed from the vagina. The bladder was empty. 100 mL of the dilute quarter percent Marcaine with epinephrine were placed into the space of Retzius behind the pubic symphysis. A weighted speculum was placed into the vagina. 2 Allis clamps were placed lateral to the urethral meatus approximately 1 cm distal. 3 mL of a dilute quarter percent Marcaine were placed submucosally. A 1 cm incision was made 1.5 cm away from the urethral meatus. This was dissected out laterally with the Metzenbaum scissors. A rigid catheter was placed into the bladder. With the bladder neck retracted away from the patient's right side 10 mL of the dilute local were placed aiming towards the patient's right shoulder up behind the pubic symphysis. This was repeated on the patient's left side, with the bladder neck retracted away from the patient's left side. The proposed tract for the TVT was dissected out with Hegar dilators using # 3 through # 6. This was done with the bladder neck retracted away from the side being worked on. A hemostat was placed on the overlapping portion of the plastic covering the TVT. After the TVT was loaded and with the bladder neck retracted away from the patient's right side, the TVT was directed towards the patient's shoulder on the right side, perforating the urogenital diaphragm, and then directed up behind the pubic symphysis and the introducer came out approximately 2 cm lateral to the midline on the left side. A small 3 mm geovanna in the skin was made and the introducer was brought up and grasped with a [place]. This was repeated on the patient's left side with the bladder neck retracted away from the patient's left side. The rigid portion of the catheter was removed. The bladder was filled with 240 mL of sterile saline. A cystoscopy was performed and there was no TVT or introducer visible in the bladder. The 2 introducers were pulled up with care not to over tighten the TVT. The plastic sheaths over the TVT were removed with care not to over tighten the TVT. The TVT was cut below the skin edge, with care not to over tighten. Huang scissors were placed between the TVT and the urethra to prevent over tightening. The mucosa was closed with 3-0 Vicryl with a running interlocking suture. Dermabond was placed over the suprapubic incisions. Allis clamps were placed at the mucocutaneous junction at the introitus. 6 mL of half percent Marcaine with epinephrine were injected. An incision was made with a #10 blade between the 2 Allis clamps, and a triangular piece of skin and underlying subcutaneous tissue was removed. Allis clamps were placed in the midline of the rectocele. 10 mL of half percent Marcaine with epinephrine were injected submucosally. The mucosa was undermined using the Metzenbaum scissors and the mucosa incised in the midline, moving the wide Allis clamps to the mucosal edges. The underlying fascia was dissected off of the mucosa using an open moistened Ray-Sanjay and a #10 blade. The fascia was reapproximated using 0 Vicryl with a series of horizontal mattress sutures. The excess vaginal mucosa was excised. The mucosa was closed using a series of simple interrupted sutures with 2-0 Vicryl including the underlying fascia to close the space. On the perineum 0 Vicryl was used to reapproximate the levator muscle. The subcutaneous layer was closed with 2-0 Vicryl. The skin was closed with 3-0 chromic in a subcuticular fashion. Hemos tasis was achieved. A Betadine moistened vaginal packing was placed into the vagina. The Lama catheter was replaced in the bladder and connected to a Lama bag. Sponge, laps and instrument counts were correct x-2. The patient tolerated the procedure well, and was taken to PACU in stable condition. Complications: none Post-operative Condition: stable Disposition: PACU Plan for aftercare: To Acute Care after Recovery
--- NOTE | 2022-12-09 13:06 | SUR.PHASEI ---
Patient states pain is 4/10 and refusing pain medication.
[2022-12-09] MEDS: fentaNYL 100 MCG/2 ML INJ IV (13:16)
[2022-12-09] MEDS: LACTATED RINGERS 1,000 ML 100 ML IV ×2 (13:58→23:50)
[2022-12-09] MEDS: OXYCODONE IR 5 MG TABLET PO ×3 (13:59→23:50)
[2022-12-09] MEDS: ACETAMINOPHEN 325 MG TABLET 650 MG PO ×2 (14:00→19:42)
[2022-12-09] MEDS: ONDANSETRON 4 MG/2 ML INJ IV ×2 (14:15→21:07)
[2022-12-09] MEDS: DOCUSATE 100 MG CAPSULE 200 MG PO (21:07)
[2022-12-10] MEDS: ACETAMINOPHEN 325 MG TABLET 650 MG PO ×2 (03:45→08:29)
[2022-12-10] MEDS: ONDANSETRON 4 MG/2 ML INJ IV ×2 (03:50→08:40)
[2022-12-10] MEDS: OXYCODONE IR 10 MG TABLET PO ×2 (03:50→08:38)
[2022-12-10 04:46] LABS: Add Manual Diff / Slide Review NO; Basophils Absolute Auto 0 /uL (0-100); Basophils Percent Auto 0.2 % (0-2); Eosinophils Absolute Auto 0 /uL (0-450); Hematocrit 27.6 % (36-46); Hemoglobin 9.3 g/dL (12.0-16.0); Lymphocytes Absolute Auto 1000 /uL (1100-4500); Lymphocytes Percent Auto 7.6 % (25-40); Mean Corpuscular HGB Conc 33.9 % (30-36); Mean Corpuscular Hemoglobin 29.7 PG (26-34); Mean Corpuscular Volume 87.7 fL (80-100); Monocytes Absolute Auto 800 /uL (0-900); Monocytes Percent Auto 5.9 % (3-14); Neutrophils Absolute Auto 11000 /uL (1500-7000); Neutrophils Percent Auto 86.3 % (50-75); Platelet Count 146 X10^3/uL (150-400); Red Blood Cell Count 3.15 X10^6/uL (4.0-5.2); Red Cell Distribution Width 14.3 % (11.6-14.8); White Blood Cell Count 12.7 X10^3/uL (4.5-11.0)
--- NOTE | 2022-12-10 06:08 | PC.NURSE ---
0600- Vaginal packing and hernandez catheter removed per order. Patient tolerated well. Two small puncture sites observed at the lower abdomen just above the pubis. Sites are clean and well approximated. There are sutures in the labia and a moderate amount of swelling, though tissue appears well purfused and suture lines are well approximated. Patient stable. Will monitor.
[2022-12-10 07:00] VITALS: BP 94/59; PULSE 65; RESP 17; TEMP 36.6; O2SAT 100
[2022-12-10] MEDS: DOCUSATE 100 MG CAPSULE 200 MG PO (08:29)
[2022-12-10] MEDS: DOXYCYCLINE HYCLATE 100 MG TABLET PO (08:30)
[2022-12-10] MEDS: ESCITALOPRAM 10 MG TABLET 20 MG PO (08:30)
--- NOTE | 2022-12-13 10:36 | P.DS_ITS ---
History of Present Illness History of Present Illness Date Patient Seen: 12/10/22 Time Patient Seen: 11:00 Chief complaint: Pelvic *OPB* Narrative: Patient is a 47-year-old who underwent an anterior/posterior repair, perineorrhaphy, TVT with cystoscopy, and labia plasty on December 09, 2022. This was without complication. Early in the morning on December 10, 2022, her Lama catheter and vaginal packing were removed. She voided 300 cc of clear yellow urine and had a 30 cc postvoid residual. Her bleeding was minimal. Her pain was well controlled. She was ambulating independently. She was discharged home on postop day # 1 to follow-up at 2 weeks for a postop check Discharge Providers Provider Discharge Date: 12/10/22 Primary care physician: Rosanna Hodges PA-C Discharge provider: Katty Martinez MD Summary Hospital Course Discharge Diagnosis: Symptomatic cystocele and rectocele Labial hypertrophy Stress urinary incontinence Hospital Course: Patient is a 47-year-old who underwent an anterior/posterior repair, perineorrhaphy, TVT with cystoscopy, and labia plasty on December 09, 2022. This was without complication. Early in the morning on December 10, 2022, her Lama catheter and vaginal packing were removed. She voided 300 cc of clear yellow urine and had a 30 cc postvoid residual. Her bleeding was minimal. Her pain w as well controlled. She was ambulating independently. She was discharged home on postop day # 1 to follow-up at 2 weeks for a postop check Status at Discharge Cognitive/behavioral status at discharge: oriented Functional status at discharge: independent ambulation Overall status at discharge: patient is progressing back to baseline Time Spent with Patient Time spent: Less than 30 minutes Exam Vital Signs (past 8 hours): Oxygen Delivery Method Room Air Oxygen Flow Rate 0 Narrative Exam Narrative: Generally: Patient is sitting up in bed, no acute distress Lungs: Clear to auscultation bilaterally Cardiovascular: Regular rate and rhythm Abdomen: Suprapubic incisions with glue, no redness or drainage Perineum: Dry and intact Extremities: No edema, negative Homans Objective Labs 12/10/22 04:23 [facility] Surgical History (Updated 11/15/22 @ 06:31 by Katty Martinez MD) History of endometrial ablation History of right hip replacement [place] teeth extracted Social History household members: significant other Smoking Status: Never smoker Discharge Assessment & Plan Assessment and Plan Assessment: Postop day # 1 status post anterior/posterior repair, TVT with cystoscopy, and labia plasty No urinary retention Patient doing very well Plan of Treatment: Discharge to home Follow-up in 2 weeks Patient to call with fever, chills, redness or drainage around the incisions, or bleeding vaginally more than spotting to light Discharge Plan Discharge Plan Patient Disposition: Home Provider Discharge Comment: Call with fever, chills, redness or drainage around the incisions or bleeding vaginally more than spotting to light Ibuprofen 600mg every 6 hours as needed Tylenol 650mg every 6 hours as needed Empty bladder every 2 1/2 - 3 hours Stool softners Discharge orders & Medications Discharge Orders: Discharge (Order); Ordered 12/10/22 Ordered By: Katty Martinez Prescriptions: New oxycodone 5 mg tablet 5 mg PO Q6H PRN (Reason: pain) Qty: 14 0RF ondansetron 4 mg tablet,disintegrating 4 mg PO Q6H Qty: 10 0RF Continued escitalopram oxalate [Lexapro] 20 mg tablet 20 mg PO DAILY doxycycline hyclate 100 mg capsule 100 mg PO DAILY ondansetron 4 mg tablet,disintegrating 4 mg PO DAILY PRN (Reason: Nausea) Vyvanse 20 mg capsule 20 mg PO QAM Follow up/Referrals: Katty Martinez MD [Physician] - (Post op visits already scheduled) Diet/Activity/Treatments Diet: Regular Activity: No heavy lifting Nothing in the vagina for 6 weeks Skin/Wound/Dressing Care Report to your healthcare provider any signs of infection, such as:: chills, fever, increased pain, unusual drainage and unusual redness Visit Report/Discharge Packet Instructions: DI for Cystocele and Rectocele Repair, DI for Prescription Opioid Use Stand Alone Forms: Patient Portal/API, Surgery Discharge Discharge Data Primary Care Provider: Rosanna Hodges Attending Provider: Katty Martinez
== END 2022-12-10 11:30 | disposition home or self-care (01) ==
LOC: OR 08:45 → AC 08:47
PROVIDERS: PCP Physician Assistant; Referring Provider Obstetrics & Gynecology; Visit Provider Obstetrics & Gynecology
PROC: (CPT 57288; principal; 2022-12-09 09:45)
PROC: 0TSD0ZZ Reposition Urethra, Open Approach (ICD-10-PCS; CPT 57288; 2022-12-09 09:45)
DX: N81.10 Cystocele, unspecified (principal); N81.6 Rectocele; N90.60 Unspecified hypertrophy of vulva; N39.3 Stress incontinence (female) (male)
CPT/HCPCS: 57288; 56620; 57260; 36415; 85025; C1771; J0171; J0330; J0690; J1100; J1170; J1885; J2250; J2405; J2704; J3010

== ENCOUNTER 2022-12-18 13:36 | Emergency (ER) | payer OTHER, SELFPAY ==
[2022-12-09 13:59] VITALS: BMI 19.3
--- NOTE | 2022-12-18 13:40 | ED.GENADULT ---
HPI - General Adult General Chief complaint: Extremity Problem,Nontraumatic Stated complaint: post op 12/09 poss blood clot LT hip/groin area Time Seen by Provider: 12/18/22 13:40 History of Present Illness HPI narrative: 47-year-old female nonsmoker with history of stress incontinence, cystocele and rectocele with recent gynecologic surgery including anterior and posterior repair, perineorrhaphy, DVT with cystoscopy and labia plasty on December 09, 2022 at our facility presents with a chief complaint of pain and swelling in her left groin last night. She states it feels full and somewhat similar to a prior blood clot she had. It hurts worse when she walks and improves with rest. She denies chest pain or shortness of breath Related Data Home Medications Medication Instructions Recorded Confirmed doxycycline hyclate 100 mg capsule 100 mg PO DAILY 10/27/22 12/09/22 escitalopram oxalate 20 mg tablet 20 mg PO DAILY 10/27/22 12/09/22 (Lexapro) lisdexamfetamine 20 mg capsule 20 mg PO QAM 12/09/22 12/09/22 (Vyvanse) ondansetron 4 mg disintegrating 4 mg PO DAILY PRN Nausea 12/09/22 12/09/22 tablet Previous Rx's Medication Instructions Recorded ondansetron 4 mg disintegrating 4 mg PO Q6H #10 tabs 12/10/22 tablet oxycodone 5 mg tablet 5 mg PO Q6H PRN pain #14 tabs 12/10/22 apixaban 5 mg (74 tabs) tablets in See Rx Instructions PO .COMPLEX 12/18/22 a dose pack (Dandelion DVT-PE Treat #74 ea 30D Start) Allergies Allergy/AdvReac Type Severity Reaction Status Date / Time Sulfa (Sulfonamide Allergy Verified 12/18/22 13:49 Antibiotics) Review of Systems Review of Systems Narrative: GENERAL: Denies chills, fatigue, malaise, fever, sweats. HEENT: Denies sinus pain, ear pain, sore throat, difficulty swallowing, dizziness. RESPIRATORY: Denies dyspnea, cough, wheezing, hemoptysis, sputum. CARDIOVASCULAR: Denies chest pain, palpitations, orthopnea, edema, GASTROINTESTINAL: Denies nausea, vomiting, abdominal pain, diarrhea, constipation, melena. : Denies dysuria, frequency, incontinence, hematuria, urinary retention. MUSCULOSKELETAL: See HPI SKIN: See HPI NEUROLOGIC: Denies weakness, headache, numbness, change in speech, confusion, seizures, incoordination. PSYCHIATRIC: No concerning psychosocial issues. 12 point review of systems is negative except for those stated above Patient History Surgical History History of endometrial ablation History of right hip replacement [place] teeth extracted Social History household members: significant other Smoking Status: Never smoker Smoking Status: Never smoker alcohol intake frequency: 0-2 drinks per day Substance Use Type: does not use Exam Narrative Exam Narrative: GEN: AOx3 and in mild distress EYES: Pupils are equal, round, and reactive to light and accommodation. Extraoccular muscles are intact bilaterally. There is no subconjunctival hemorrhage or exudate. CHEST: Lungs are clear to auscultation bilaterally and free of wheezes, rales, or rhonchi. Heart rate is regular rhythm, there are no murmurs, clicks, rubs, or gallops. There is no chest wall tenderness. ABD: Abdomen is soft and nontender. There is no guarding or rebound. Bowel sounds are normal in all 4 quadrants. There is no mass or organomegaly. EXT: Tenderness and minimal swelling in left groin region with some superficial erythema, no fluctuance or lymphangitis Full painless ROM of all extremities with no loss of sensation or strength. SKIN: Warm, pink, and dry. No erythema or rash Initial Vital Signs Initial Vital Signs: Vital Signs Temperature 98.6 F 12/18/22 13:50 Pulse Rate 86 12/18/22 13:50 Respiratory Rate 18 12/18/22 13:50 Blood Pressure 97/56 L 12/18/22 13:50 Pulse Oximetry 96 12/18/22 13:50 Oxygen Delivery Method Room Air 12/18/22 13:50 Course Orders Ordered: ED Orders 12/18/22 13:58 US periph venous low extrem lt Stat Consultations Consultation #1: Discussed with her senior mechanical estimator, Dr. Martinez. We discussed risks and benefits of treatment and sure the opinion that anticoagulation given the size and location of clot is appropriate, low risk for complications as she is over 7 days from surgery Vital Signs Vital signs: Vital Signs - 8 hr 12/18/22 13:50 Temperature 98.6 F Pulse Rate 86 Respiratory Rate 18 Blood Pressure 97/56 L Pulse Oximetry 96 Oxygen Delivery Method Room Air Medical Decision Making MDM Narrative Medical decision making narrative: [47] year old patient presents with pain in left groin Multiple etiologies for patient's symptoms considered including, but not limited to: [DVT versus superficial clot versus infectious process versus aneurysm versus pseudoaneurysm versus other] Prior Charts reviewed in our EMR Primary Historian: patient Imaging reviewed: Ultrasound demonstrates an occlusive thrombus within the greater saphenous vein involving the saphenofemoral junction Consultations: Discussed with on-call gynecology, see details above Patient's history and physical exam are reassuring, multiple diagnoses considered as noted above. Ultrasound shows an occlusive thrombus within the greater saphenous vein at the saphenofemoral junction. Considering that clot is greater than 5 cm in length and within 5 cm of the deep venous system she is most appropriate the treated by anticoagulation, risks and benefits discussed with patient, prescription sent to her pharmacy of choice return precautions including but not limited to evidence of abnormal bleeding, increased pain, feeling lightheaded or as if she may pass out versus other Findings and discharge diagnosis discussed with patient/family followed by verbalization of understanding Return precautions discussed with patient/family whom verbalize understanding of diagnosis and plan Discharge Plan Departure Patient Disposition: Home Clinical Impression: Superficial thrombophlebitis Instructions: DI for Superficial Thrombophlebitis Activity Restrictions/Additional Instructions: *You have been diagnosed with [left groin superficial thrombophlebitis. As we discussed given its size and proximity to the deep veins current recommendations are to anticoagulated and treat as if it were a deep clot] *What to do: *Please continue to take your regular medications as directed. [ x] New medication prescriptions sent to your pharmacy: [ [facility]] [ ] New medication written as a paper prescription [ ] No new medications given *Please follow up with Dr. Martinez as planned. Let them know you were seen in the Emergency Department and that we ask that you be seen in follow up. We will electronically transmit a record of today's note. She wanted me to remind you to take it easy for a few weeks, no vigorous activity, no heavy lifting *If you do not have a primary care provider please contact the [facility] Resource line at [phone]. They will ask some questions about your medical history and help get you set up with a doctor in the community. *Return to Emergency Department if you should have any new, worsening or concerning symptoms, such as [fever greater than 101 F, shaking chills, worsening pain, persistent vomiting or any signs of abnormal bleeding such as in your urine, with bowel movements, from any of your sutures or other Prescriptions: New Eliquis DVT-PE Treat 30D Start 5 mg (74 tabs) tablets,dose pack See Rx Instructions .ROUTE .COMPLEX Qty: 74 0RF Rx Instructions: orally per package directions No Action escitalopram oxalate [Lexapro] 20 mg tablet 20 mg PO DAILY doxycycline hyclate 100 mg capsule 100 mg PO DAILY ondansetron 4 mg tablet,disintegrating 4 mg PO DAILY PRN (Reason: Nausea) Vyvanse 20 mg capsule 20 mg PO QAM oxycodone 5 mg tablet 5 mg PO Q6H PRN (Reason: pain) Qty: 14 0RF ondansetron 4 mg tablet,disintegrating 4 mg PO Q6H Qty: 10 0RF Referrals: Katty Martinez MD [Physician] - Rosanna Hodges PA-C [Primary Care Provider] - Stand Alone Forms: Patient Portal/API
[2022-12-18 13:50] VITALS: BP 97/56; PULSE 86; RESP 18; TEMP 37; O2SAT 96; BMI 19.4
--- NOTE | 2022-12-18 13:58 | DI.US.S_ITS ---
PROCEDURE: US PERIPH VENOUS LOW EXTREM LT INDICATIONS: PAIN/SWELLING. HISTORY OF CLOT. RECENT SURGERY. TECHNIQUE: Real-time imaging, as well as color and pulse Doppler interrogation, were performed of the lower extremity deep veins from the inguinal ligament to the popliteal fossa, with documentation of the visualized calf veins. COMPARISON: None. FINDINGS: The common femoral, femoral, popliteal, and the visualized calf veins are normally compressible, and free of intraluminal thrombus. Color and pulse Doppler demonstrate normal phasic intraluminal flow. There is normal augmentation response to distal compression maneuver. There is occlusive thrombus within the greater saphenous vein at the saphenofemoral junction. IMPRESSION: 1. Occlusive thrombus within the greater saphenous vein involving the saphenofemoral junction. 2. No definitive deep venous thrombosis. The result was discussed with Dr. Ferrera. Dictated by: Pippa Vasquez M.D. on 12/18/2022 at 15:57 Approved by: Pippa Vasquez M.D. on 12/18/2022 at 15:58
[2022-12-18 15:50] VITALS: BP 106/64; PULSE 72; RESP 16; RESP 17; O2SAT 100
== END 2022-12-18 15:52 | disposition home or self-care (01) ==
PROVIDERS: Emergency Provider Emergency Medicine; PCP Physician Assistant
DX: I80.8 Phlebitis and thrombophlebitis of other sites (principal)
CPT/HCPCS: 93971; 99281; 99282

== ENCOUNTER 2023-03-04 20:53 | Emergency (ER) | payer OTHER, SELFPAY ==
[2022-12-09 13:59] VITALS: BMI 19.3
[2023-03-04 21:01] VITALS: BP 112/65; PULSE 83; RESP 16; TEMP 36.6; O2SAT 100; BMI 19.8
--- NOTE | 2023-03-04 22:06 | ED.EXTPRO ---
HPI - Extremity Problem General Chief complaint: Extremity Problem,Nontraumatic Stated complaint: Left calf blood clot, left groin blood clot Time Seen by Provider: 03/04/23 21:54 Source: patient Mode of arrival: Family Vehicle History of Present Illness HPI Narrative: Patient with a recently diagnosed DVT who started apixaban 10 mg b.i.d. yesterday comes to the ED because she is noticed a little bit of tingling and swelling in the calf on the affected side where the DVT in the groin was identified yesterday. She is had a little bit of tingling in her chest but no fast heart rate, no breathlessness, no chest pain, no syncope. She was diagnosed with a factor 8 deficiency recently. Related Data Home Medications Medication Instructions Recorded Confirmed escitalopram oxalate 20 mg tablet 20 mg PO DAILY 10/27/22 01/24/23 (Lexapro) lisdexamfetamine 20 mg capsule 20 mg PO QAM 12/09/22 01/24/23 (Vyvanse) ondansetron 4 mg disintegrating 4 mg PO DAILY PRN Nausea 12/09/22 01/24/23 tablet Previous Rx's Medication Instructions Recorded ondansetron 4 mg disintegrating 4 mg PO Q6H #10 tabs 12/10/22 tablet Allergies Allergy/AdvReac Type Severity Reaction Status Date / Time Sulfa (Sulfonamide Allergy Verified 03/04/23 21:05 Antibiotics) Patient History Surgical History History of endometrial ablation History of right hip replacement [place] teeth extracted Social History household members: significant other Smoking Status: Never smoker Smoking Status: Never smoker alcohol intake frequency: 0-2 drinks per day Substance Use Type: does not use Exam Narrative Exam Narrative: GENERAL: Alert, cooperative and in no distress. HEAD: Atraumatic. Normocephalic. EYES: Sclera are clear without icterus. Extraocular movements are full. ENT: No rhinorrhea NECK: Supple. Full range of motion. CARDIOVASCULAR: Normal rate and rhythm without murmur gallop or rub. RESPIRATORY: Clear to auscultation. Breath sounds equal bilaterally. No wheezes, rales, or rhonchi. GASTROINTESTINAL: Abdomen soft, non-tender, nondistended. EXTREMITIES: No edema, full range of motion. No obvious trauma. No demonstrable swelling or discoloration or warmth to the left calf. It is roughly the same size as the right side NEURO: Nonfocal examination, normal speech, normal gait. SKIN: No rash or erythema of visible areas PSYCH: Normally oriented. Normal range of affect. Appropriate behavior Initial Vital Signs Initial Vital Signs: Vital Signs Temperature 98 F 03/04/23 21:01 Pulse Rate 83 03/04/23 21:01 Respiratory Rate 16 03/04/23 21:01 Blood Pressure 112/65 03/04/23 21:01 Pulse Oximetry 100 03/04/23 21:01 Oxygen Delivery Method Room Air 03/04/23 21:01 Course Vital Signs Vital signs: Vital Signs - 8 hr 03/04/23 21:01 Temperature 98 F Pulse Rate 83 Respiratory Rate 16 Blood Pressure 112/65 Pulse Oximetry 100 Oxygen Delivery Method Room Air MDM - Extremity (Nontraumatic) MDM Narrative Medical decision making narrative: Well-appearing woman on definitive therapy. Normal vital signs. I do not suspect pulmonary embolism. No additional therapy is required at this time. Reassurance given. Careful return precautions given. Discharge Plan Departure Patient Disposition: Home Clinical Impression: DVT (deep venous thrombosis), Calf swelling Activity Restrictions/Additional Instructions: Take your apixaban as prescribed. I do not perceive any objective swelling in the left calf. Even if there is a deep vein clot there it is of much less risk than the clot up near the groin. I see no evidence of pulmonary embolism at this time. You should take your medicines as prescribed and follow-up with your doctor as previously arranged, and try not to worry. You should return to the ED for fainting, severe chest pain, shortness of breath at rest or any other severe symptoms. Prescriptions: No Action escitalopram oxalate [Lexapro] 20 mg tablet 20 mg PO DAILY ondansetron 4 mg tablet,disintegrating 4 mg PO DAILY PRN (Reason: Nausea) Vyvanse 20 mg capsule 20 mg PO QAM ondansetron 4 mg tablet,disintegrating 4 mg PO Q6H Qty: 10 0RF Referrals: Rosanna Hodges PA-C [Primary Care Provider] - Stand Alone Forms: Patient Portal/API
[2023-03-04 22:15] VITALS: BP 110/64; PULSE 72; RESP 16; TEMP 36.4; O2SAT 98
== END 2023-03-04 22:16 | disposition home or self-care (01) ==
PROVIDERS: Emergency Provider Family Medicine Addiction Medicine; PCP Physician Assistant
DX: I82.409 Acute embolism and thrombosis of unspecified deep veins of unspecified lower extremity (principal)
CPT/HCPCS: 99281; 99282

== ENCOUNTER 2023-04-13 07:32 | Day surgery (SDC) | payer OTHER, SELFPAY ==
[2022-12-09 13:59] VITALS: BMI 19.3
[2023-04-07 07:34] VITALS: BMI 19.8
[2023-04-13 07:50] VITALS: BP 102/71; PULSE 74; RESP 16; TEMP 37; O2SAT 98; BMI 19.3
[2023-04-13] MEDS: SCOPOLAMINE 1 PATCH TOP (08:18)
[2023-04-13] MEDS: LACTATED RINGERS 1,000 ML 42 ML IV (08:18)
--- NOTE | 2023-04-13 08:40 | P.HPOB_ITS ---
History of Present Illness History of Present Illness Narrative: Inez Rico is a 47 year old female 6 para 4 with erosion of the TVT in the vagina. Patient is here for revision of TVT. [facility] Medical History (Updated 04/07/23 @ 07:44 by America Alexander RN) DVT (deep venous thrombosis) (02/2023) Factor VIII deficiency Surgical History (Updated 04/07/23 @ 07:36 by America Alexander RN) History of gynecologic surgery (12/09/22) History of endometrial ablation [place] teeth extracted History of right hip replacement Social History household members: significant other Smoking Status: Never smoker alcohol intake: current Meds Home Medications and Allergies Home Medications Medication Instructions Recorded Confirmed Type lisdexamfetamine 20 mg capsule 20 mg PO QAM 12/09/22 04/13/23 History (Vyvanse) ondansetron 4 mg disintegrating 4 mg PO DAILY PRN Nausea 12/09/22 04/13/23 History tablet apixaban 5 mg tablet (Eliquis) 5 mg PO BID 03/25/23 04/13/23 History spironolactone 50 mg tablet 50 mg PO DAILY 04/13/23 04/13/23 History Allergies Allergy/AdvReac Type Severity Reaction Status Date / Time Sulfa (Sulfonamide Allergy Verified 03/25/23 11:54 Antibiotics) Exam Vital Signs (past 8 hours): - 04/13/23 07:50 Temperature 98.6 F Pulse Rate 74 Respiratory Rate 16 Blood Pressure 102/71 Pulse Oximetry 98 Oxygen Delivery Method Room Air Oxygen Delivery Method Room Air Narrative Exam Narrative: Generally: Patient is sitting up on gurney, no acute distress Lungs: Clear to auscultation bilaterally Cardiovascular: Regular rate and rhythm Abdomen: Soft and flat. No scars. No hepatosplenomegaly Perineum: Well-healed Vagina: Exposed TVT on the anterior vaginal wall Extremities: No edema Assessment & Plan Assessment & Plan narrative: Assessment: 47-year-old 6 para 4 with exposed TVT on the anterior vaginal wall Plan: Revision of TVT The risks, benefits, and alternatives to the procedure were explained to the patient. The risks including bleeding and infection. She understands these risks and agrees to proceed. A full par Q was held and consent form was signed. Time Spent With Patient Time with patient: less than 30 minutes
--- NOTE | 2023-04-13 08:42 | PM.PREOP ---
Pre-operative Note Interval Note History & Physical reviewed/Exam performed by Physician: Yes Changes to H&P: No H&P completed within 30 days and has changed as indicated here:: 04/13/23
--- NOTE | 2023-04-13 09:16 | SUR.OPER ---
Lithotomy on padded OR bed, head on pillow, arms secured on padded arm boards at <90 degrees abduction. Legs secured in padded yellow fins stirrups.
[2023-04-13] MEDS: BUPIVACAINE 0.25% (PF) 30 ML, EPINEPHrine 0.15 MG INJ (09:21)
[2023-04-13 09:35] VITALS: BP 112/76; PULSE 72; RESP 14; TEMP 36.8; O2SAT 99
[2023-04-13 09:40] VITALS: BP 109/77; PULSE 68; RESP 13; O2SAT 100
[2023-04-13 09:45] VITALS: BP 109/78; PULSE 77; RESP 12; O2SAT 100
[2023-04-13] MEDS: ACETAMINOPHEN 325 MG TABLET 975 MG PO (09:53)
[2023-04-13] MEDS: OXYCODONE IR 5 MG TABLET PO (09:53)
--- NOTE | 2023-04-13 09:55 | P.OP_ITS ---
Operative Date/Time/Diagnoses Date of procedure: 04/13/23 Time of procedure: 09:55 Pre-op diagnosis: Exposed piece of TVT on the anterior vaginal wall Post-op diagnosis: same Procedure & Clinicians Procedure: Procedures Operation Date: 04/13/23 09:00 Actual Procedure Side Surgeon p Tensionless Vaginal Tape Revision Not Applicable Katty Martinez MD Indications: 47-year-old 6 para 4 with an exposed piece of the TVT on the anterior vaginal wall Surgeon: Katty Martinez Anesthesia Type: General (LMA) Operative Notes Findings: 1 cm x 0.5 cm piece of the TVT visible and palpable on the right anterior vaginal wall Closure Type: primary Specimen(s): none Estimated blood loss (mL): 5 Procedure in detail: After informed consent was obtained, the patient was taken to the operating room where she was placed in the dorsal supine position. After adequate LMA general anesthesia was achieved, she was placed in the dorsal lithotomy position, and prepped and draped in the usual sterile fashion. A red rubber catheter was placed into the urethra. A weighted speculum was placed into the vagina. On the anterior vaginal wall on the patient's right side there was a small piece of TVT visible measuring 1 cm x 0.5 cm. 4 cc of 0.25% Marcaine with epinephrine were injected submucosally around the exposed TVT. The mucosa was excised to reveal fresh edges. The TVT was buried and the defect was closed with 4 simple interrupted sutures with 3-0 chromic. Hemostasis was achieved. The weighted speculum was removed from the vagina. The red rubber catheter was removed from the urethra. Sponge, lap, and instrument counts were correct x2. The patient t olerated the procedure well, and was taken to PACU in stable condition. Complications: none Post-operative Condition: stable Disposition: PACU Plan for aftercare: Home after recovery
[2023-04-13 10:00] VITALS: BP 113/79; PULSE 73; RESP 12; O2SAT 100
[2023-04-13 10:15] VITALS: BP 110/78; PULSE 71; RESP 12; TEMP 37.1; O2SAT 100
== END 2023-04-13 10:20 | disposition home or self-care (01) ==
PROVIDERS: PCP Family Medicine; Referring Provider Obstetrics & Gynecology; Visit Provider Obstetrics & Gynecology
PROC: 0TSD0ZZ Reposition Urethra, Open Approach (ICD-10-PCS; CPT 57287; principal; 2023-04-13 09:00)
DX: T83.128A Displacement of other urinary devices and implants, initial encounter (principal)
CPT/HCPCS: 57287; 81025; J0171; J1100; J2250; J2405; J2704; J3010

== ENCOUNTER 2023-06-16 12:07 | Day surgery (SDC) | payer OTHER, SELFPAY ==
[2022-12-09 13:59] VITALS: BMI 19.3
[2023-06-15 14:52] VITALS: BMI 19.3
[2023-06-16 12:35] VITALS: BP 117/69; PULSE 79; RESP 14; TEMP 37.1; O2SAT 98; BMI 19.3
[2023-06-16] MEDS: LACTATED RINGERS 1,000 ML 42 ML IV (12:52)
[2023-06-16] MEDS: SCOPOLAMINE 1 PATCH TOP (12:53)
--- NOTE | 2023-06-16 13:37 | PM.PREOP ---
Pre-operative Note COVID-19 COVID-19 status: Not tested Interval Note History & Physical reviewed/Exam performed by Physician: Yes Changes to H&P: No
[2023-06-16] MEDS: CEFAZOLIN 2 GM/100 ML PREMIX 100 ML IV (14:03)
--- NOTE | 2023-06-16 14:33 | SUR.OPER ---
Lithotomy on padded OR bed, head on pillow, arms secured on padded arm boards at <90 degrees abduction. Legs secured in padded yellow fins stirrups.
[2023-06-16 15:08] VITALS: BP 121/83; PULSE 91; RESP 14; TEMP 36.8; O2SAT 96
[2023-06-16 15:13] VITALS: BP 121/83; PULSE 87; RESP 14; O2SAT 99
[2023-06-16] MEDS: HYDROMORPHONE 1 MG INJ IV ×2 (15:14→15:19)
[2023-06-16 15:18] VITALS: BP 110/73; PULSE 88; RESP 18; O2SAT 99
--- NOTE | 2023-06-16 15:21 | P.OP_ITS ---
Operative Date/Time/Diagnoses Date of procedure: 06/16/23 Time of procedure: 14:00 Pre-op diagnosis: Mid urethral sling mesh erosion Post-op diagnosis: same Procedure & Clinicians Procedure: Procedures Operation Date: 06/16/23 13:15 Actual Procedure Side Surgeon anjali Ruiz, mid-urethral sling Ángel Morataya MD Indications: Patient is a 48 year old who presented to recheck the TVT following revision in 03/2023 due to palpable mid-urethral mesh following TVT in November 2022. Unfortunately she still feels the TVT mesh PV and is admitted now for a 2nd revision TVT mesh. Surgeon: Ángel Morataya Anesthesia Type: General Operative Notes Findings: A small strand TVT mesh is visible to the right of the midline near the site of to CBC insertion and a 2nd area of mesh erosion is noted lateral to the right side. All eroded mesh dissected was fully excised during the course of the surgery. Closure Type: primary Specimen(s): none Estimated blood loss (mL): 15 Blood products transfused: none Procedure in detail: With the patient under satisfactory general anesthesia in the modified dorsal lithotomy position, the vagina, perineum, and lower abdomen were prepped and draped in the usual manner for vaginal surgery. A pre-surgical safety time-out was then taken in accordance with [facility] protocols. A Lama catheter was inserted in the bladder. A weighted speculum was placed in the vagina and the anterior vaginal wall carefully evaluated. There was a single strand mesh material sticking through the skin of the anterior vaginal wall for the right side of the midline and a 2nd area further lateral with several areas of mesh material sticking through the skin. The area was infiltrated with 0.25% Marcaine with epinephrine and the medial strand of mesh material was grasped with a hemostat. With gentle traction on the mesh material iris scissors were used to dissect the underlying mesh away from the scarring holding the mesh in place. Further dissection of the mesh across the midline was carried out using Metzenbaum scissors and once a sufficient length of TVT mesh had been dissected, it was transected with a pair of scissors and removed. The more lateral mesh material was grasped with a hemostat and dissected free with iris and Metzenbaum scissors. Once it to had been dissected free of surrounding scar tissue, it was transected at its base well away from the skin surface. The area was irrigated and inspected for any significant areas of bleeding. There were known evident. At that point the area of dissection was closed with 3-0 chromic catgut suture in a running interlocking stitch and pressure held to make sure that there was minimal if any bruising in the underlying tissues. The operation was then terminated by removal of the Lama catheter and instruments from the vagina. The patient was then awakened from anesthesia and transferred to the PACU for a period of observation and recovery after having tolerated the procedure well. Complications: none Post-operative Condition: stable Disposition: PACU Plan for aftercare: Routine postoperative care with follow-up planned 4 weeks postop.
[2023-06-16 15:23] VITALS: BP 111/66; PULSE 85; RESP 18; TEMP 37.1; O2SAT 100
[2023-06-16] MEDS: OXYCODONE IR 5 MG TABLET PO (15:30)
[2023-06-16 15:48] VITALS: BP 123/76; PULSE 91; RESP 16; O2SAT 99
== END 2023-06-16 16:07 | disposition home or self-care (01) ==
PROVIDERS: Obstetrics & Gynecology; PCP Family Medicine; Referring Provider Obstetrics & Gynecology; Visit Provider Obstetrics & Gynecology
PROC: 0TSD0ZZ Reposition Urethra, Open Approach (ICD-10-PCS; CPT 57287; principal; 2023-06-16 13:15)
DX: T83.712A Erosion of implanted urethral mesh to surrounding organ or tissue, initial encounter (principal)
CPT/HCPCS: 57287; J0171; J0690; J1100; J1170; J2250; J2405; J2704; J3010